=== PATIENT | female | born 1960 | race African-American/Black ===

== ENCOUNTER 2017-02-14 10:13 | Emergency (ER) | payer MEDICARE ==
[2017-02-14 11:15] LABS: ALT (SGPT) 11 U/L (8-55); AST (SGOT) 13 U/L (5-34); Alkaline Phosphatase 112 U/L (40-150); Anion Gap 11 mmol/L (10-20); BUN (Urea Nitrogen) 15 mg/dL (9.8-20.1); Bilirubin, Total 0.7 mg/dL (0.2-1.2); Calc. Creatinine Clearance 0 mL/min (70-130); Calcium 9.1 mg/dL (7.8-10.44); Carbon Dioxide 27 mmol/L (22-29); Chloride 101 mmol/L (98-107); Estimated GFR-MDRD 71; Globulin 3.2 g/dL (2.4-3.5); Protein, Total 7.3 g/dL (6.0-8.3)
[2017-02-14 11:20] LABS: Hematocrit 47.3 % (36.0-47.0); Mean Platelet Volume 6.4 fL (7.4-10.4); Red Blood Cell (RBC) Count 5.03 mill/uL (4.20-5.40); White Blood Cell (WBC) Count 5.5 thou/uL (4.8-10.8)
[2017-02-14 11:54] LABS: Band 2 % (5-11); Neutrophil 29 % (42-75); Reactive Lymphocytes 4 % (0-10)
--- NOTE | 2017-02-14 12:14 | RAD ---
THREE VIEWS RIGHT FOOT: 02/14/2017 HISTORY: The patient fell yesterday and now has right foot pain and difficulty ambulating. FINDINGS: There is no evidence of fracture, dislocation, or other osseous abnormality involving the right foot . IMPRESSION: No acute osseous abnormality. POS: [facility]
[2017-02-14 13:32] LABS: Troponin I Less than 0.010 ng/mL (< 0.028)
--- NOTE | 2017-02-14 14:01 | RAD ---
PORTABLE AP CHEST: Date: 02/14/17 HISTORY: Dizziness. COMPARISON: 05/29/13. FINDINGS: Cardiac silhouette and pulmonary vasculature are within normal limits. Again noted is mild elevation of the right hemidiaphragm. Lungs are clear. Osseous structures are intact. IMPRESSION: No acute cardiopulmonary process. POS: [facility]
== END 2017-02-14 14:29 | disposition home or self-care (01) ==
LOC: ERS 10:13
DX: S93.401A Sprain of unspecified ligament of right ankle, initial encounter (principal); S90.31XA Contusion of right foot, initial encounter; E11.9 Type 2 diabetes mellitus without complications; E78.5 Hyperlipidemia, unspecified; Z79.84 Long term (current) use of oral hypoglycemic drugs; Z79.899 Other long term (current) drug therapy; W10.9XXA Fall (on) (from) unspecified stairs and steps, initial encounter
CPT/HCPCS: 36415; 36416; 71010; 80053; 82553; 84484; 85025; 93005

== ENCOUNTER 2017-03-22 09:37 | Outpatient (CLI) | payer OTHER | END 2017-03-22 09:38 | disposition home or self-care (01) | LOC: DTY/OP 09:37 | PROVIDERS: ATTEND Family Medicine | DX: E11.40 Type 2 diabetes mellitus with diabetic neuropathy, unspecified (principal) | CPT/HCPCS: 97802 ==

== ENCOUNTER 2017-04-05 08:00 | Outpatient (CLI) | payer MEDICARE | END 2017-04-05 08:01 | disposition home or self-care (01) | LOC: BICMAMMO 08:00 | PROVIDERS: ATTEND Family Medicine | DX: Z12.31 Encounter for screening mammogram for malignant neoplasm of breast (principal) | CPT/HCPCS: 77063 ==

== ENCOUNTER 2017-04-11 09:26 | Outpatient (CLI) | payer MEDICARE | END 2017-04-11 09:27 | disposition home or self-care (01) | LOC: BICRAD 09:26 | PROVIDERS: ATTEND Family Medicine | DX: M79.644 Pain in right finger(s) (principal) ==

== ENCOUNTER 2017-07-18 07:51 | Outpatient (CLI) | payer MEDICARE | END 2017-07-18 07:52 | disposition home or self-care (01) | LOC: EDSTATUS 08:00 | PROVIDERS: ATTEND Family Medicine | DX: M48.02 Spinal stenosis, cervical region (principal) ==

== ENCOUNTER 2018-05-21 14:10 | Outpatient (CLI) | payer MEDICARE | END 2018-05-21 14:11 | disposition home or self-care (01) | LOC: BICMAMMO 14:10 | PROVIDERS: ATTEND Family Medicine | DX: Z12.31 Encounter for screening mammogram for malignant neoplasm of breast (principal) | CPT/HCPCS: 77063; 77067 ==

== ENCOUNTER 2018-05-28 13:52 | Outpatient (CLI) | payer MEDICARE | END 2018-05-28 13:53 | disposition home or self-care (01) | LOC: ULT 13:52 | PROVIDERS: ATTEND Family Medicine | DX: R60.0 Localized edema (principal); I08.1 Rheumatic disorders of both mitral and tricuspid valves | CPT/HCPCS: 93306 ==

== ENCOUNTER 2020-07-08 11:14 | Outpatient (CLI) | payer MEDICARE | END 2020-07-08 11:15 | disposition home or self-care (01) | LOC: BICMAMMO 11:14 | PROVIDERS: ATTEND Family Medicine | DX: Z12.31 Encounter for screening mammogram for malignant neoplasm of breast (principal) | CPT/HCPCS: 77063; 77067 ==

== ENCOUNTER 2022-03-02 07:55 | Outpatient (CLI) | payer MEDICARE | END 2022-03-02 07:56 | disposition home or self-care (01) | LOC: NM 07:55 | PROVIDERS: ATTEND Family Medicine | DX: R06.02 Shortness of breath (principal) | CPT/HCPCS: 78452; 93017; A9500 ==

== ENCOUNTER 2022-03-17 11:53 | Outpatient (CLI) | payer MEDICARE | END 2022-03-17 11:54 | disposition home or self-care (01) | LOC: BICMAMMO 11:53 | PROVIDERS: ATTEND Family Medicine | DX: Z12.31 Encounter for screening mammogram for malignant neoplasm of breast (principal) | CPT/HCPCS: 77063; 77067 ==

== ENCOUNTER 2023-10-17 14:37 | Outpatient (CLI) | payer MEDICARE | END 2023-10-17 14:38 | disposition home or self-care (01) | LOC: BICMAMMO 14:37 | PROVIDERS: ATTEND Family Medicine | DX: Z12.31 Encounter for screening mammogram for malignant neoplasm of breast (principal) | CPT/HCPCS: 77063; 77067 ==